=== PATIENT | female | born 1975 | race Caucasian/White ===

== ENCOUNTER → 2017-09-20 | Outpatient (CLI) | payer OTHER ==
--- NOTE | 2017-09-26 16:18 | TST ---
[place] [address] [employer] STRESS TEST Name: NICK PLATT Room: [facility]#: [id number] Admission: 09/20/17 Attend Phys: REGGIE Jaimes NP Discharge: Date of : 75 Date of Service: 09/20/17 1347 Report #: [id number] THIS REPORT FOR: //name// CC: REGGIE Webster INDICATIONS: Exercise stress test requested in this patient with a history of hypertension and abnormal ECG. FINDINGS: The patient had a pretest heart rate of 110 and blood pressure 130/84. PROCEDURE: The patient was exercised on a Kirit protocol achieving a peak heart rate of 158 and blood pressure 160/80. The patient was able to exercise for 6 minutes and 7 seconds and exercise terminated because of fatigue. In recovery, the patient had a heart rate of 116 and blood pressure 148/96. The patient denied any chest pains with exercise. The patient's resting ECG showed a sinus tachycardia with late transition, but no significant ST or T-wave changes at baseline. With exercise, no arrhythmias were noted. There were no ischemic ST segment changes noted with exercise. IMPRESSION: 1. Reduced exercise capacity. 2. Resting ECG abnormality. 3. No chest pain with exercise. 4. No ischemic ST segment changes noted with exercise. 5. Nondiagnostic exercise stress test for myocardial ischemia secondary to resting ECG abnormality. 6. Indeterminate exercise stress test for future cardiac events. 7. If clinically indicated, would consider stress testing with imaging to improve the specificity of ECG changes to rule out ischemic heart disease. <ELECTRONICALLY SIGNED> By: Gil Moreno MD, FACC 09/26/17 1618 1347 [id number] Kevin Campbell MD, FACC /nt
== END ==
LOC: M.CRD 09-06 11:00
DX: R94.31 Abnormal electrocardiogram [ECG] [EKG] (principal)